=== PATIENT | female | born 1980 | race Caucasian/White ===

== ENCOUNTER → 2017-01-03 | Outpatient (CLI) | payer OTHER ==
[~2017-01-03] MED LIST: LORAZEPAM0.5 M1 PO; NORCO 325 MG-51 TA1 PO; NORCO 325 MG-51 TAB PO; OMEPRAZOLE D/R20 MG PO; ONDANSETRON HYDR4 M1 PO; RT ALBUTEROL I6.8 GM IH; TYLENOL 325MG325 MG PO; ZOLOFT25 M1 PO
== END ==
LOC: RAD 15:52
DX: M25.561 Pain in right knee (principal); M89.8X7 Other specified disorders of bone, ankle and foot; M62.838 Other muscle spasm

== ENCOUNTER 2017-06-23 05:45 | Emergency (ER) | payer OTHER ==
[~2017-06-23] VITALS: Ht 165.1 cm; Wt 72.7 kg
[~2017-06-23 05:45] MED LIST changes: -NORCO 325 MG-51 TA1 PO
[2017-06-23] MEDS ORDERED: NORCO 325 MG-51 TA1 PO (07:02)
[2017-06-23 07:31] VITALS: BP 141/90
== END 2017-06-23 07:20 | disposition home or self-care (01) ==
LOC: ED 05:45
DX: S93.402A Sprain of unspecified ligament of left ankle, initial encounter (principal); X50.1XXA Overexertion from prolonged static or awkward postures, initial encounter; Y92.009 Unspecified place in unspecified non-institutional (private) residence as the place of occurrence of the external cause